=== PATIENT | female | born 1995 | race Caucasian/White ===

== ENCOUNTER 2016-09-21 05:52 | Emergency (ER) | payer SELFPAY ==
[2016-09-21] MEDS ORDERED: SODIUM CHLORIDE 0.9% 1,000 ML ONE (06:18)
[2016-09-21] MEDS ORDERED: NEB-ALBUTEROL 2.5 MG/3 ML INH ONE (07:38)
[2016-09-21] MEDS ORDERED: ONDANSETRON 4 MG VIAL ONE (07:44)
[2016-09-21] MEDS ORDERED: KETOROLAC 30 MG/ML VIAL ONE (07:44)
== END 2016-09-21 08:40 | disposition home or self-care (01) ==
LOC: ER 05:52
CPT/HCPCS: 36415; 71020; 80053; 81003; 83690; 84703; 85025; 87804; 87880; 94640; 96361; 96374; 96375